=== PATIENT | female | born 1950 | race Caucasian/White ===

== ENCOUNTER 2017-05-16 10:41 | Emergency (ER) | payer MEDICAID ==
[2017-05-16 10:53] VITALS: PULSE 80; RESP 18; TEMP 98.2
[2017-05-16 11:09] LABS: % IMMATURE GRANULYOCYTES 0.2 % (0.0-1.1); ABSOLUTE IMMATURE GRANULOCYTES 0.01 10^3/uL (0.00-0.10); ADD DIFF? NO; ADD MORPH? NO; ADD SCAN? NO; ATYPICAL LYMPHOCYTE FLAG 30 (0-99); FRAGMENT RBC FLAG 0 (0-99); HEMATOCRIT 44.5 % (38.0-47.0); HEMOGLOBIN 15.1 g/dL (12.6-16.3); LEFT SHIFT FLG 0 (0-99); LIPEMIA HEMOLYSIS FLAG 90 (0-99); MEAN CELL HEMOGLOBIN 31.5 pg (27.9-34.1); MEAN CELL HEMOGLOBIN CONCENTR. 33.9 g/dL (32.4-36.7); MEAN CELL VOLUME 92.7 fL (81.5-99.8); MEAN PLATELET VOLUME 9.3 fL (8.7-11.7); PLATELET CLUMPS FLAG 0 (0-99); PLATELET COUNT 193 10^3/uL (150-400); RED CELL DISTRIBUTION WIDTH 12.2 % (11.5-15.2)
[2017-05-16] MEDS ORDERED: ASPIRIN 81 MG CHEWABLE TAB PO ONE (11:10)
--- NOTE | 2017-05-16 11:16 | CPEKG ---
Heart Rate: 78 RR Interval: 769 P-R Interval: 160 QRSD Interval: 76 QT Interval: 404 QTC Interval: 461 P [place]: 66 QRS [place]: 53 T Wave [place]: 71 EKG Severity - NORMAL ECG - EKG Impression: SINUS RHYTHM Electronically Signed By: Javier Cabral 16-May-2017 13:46:58
[2017-05-16 11:33] LABS: ANION GAP 12 mEq/L (8-16); CALCIUM 9.1 mg/dL (8.5-10.4); CARBON DIOXIDE 25 mEq/l (22-31); CHLORIDE 105 mEq/L (97-110); CREATININE 0.7 mg/dL (0.6-1.0); GLOMERULAR FILTRATION RATE > 60; GLUCOSE 96 mg/dL (70-100); POTASSIUM 4.4 mEq/L (3.5-5.2); SODIUM 142 mEq/L (134-144)
[2017-05-16 11:38] LABS: APTT 26.5 SEC (23.0-38.0)
[2017-05-16 11:42] LABS: INR 1.1 (0.83-1.16); PROTIME(PATIENT) 14.1 SEC (12.0-15.0)
[2017-05-16] MEDS ORDERED: IPRATROPIUM/ALBUTEROL 3 ML DEYVIAL IH ONE (11:51)
[2017-05-16] MEDS ORDERED: methylPREDNISolone SOD SUCC 125 MG/2 ML VIAL IVP ONE (11:55)
[2017-05-16] MEDS ORDERED: ALBUTEROL 3 ML DEYVIAL IH ONE (12:32)
--- NOTE | 2017-05-16 13:31 | EDPHY ---
H & P Stated Complaint: cough for 8 days . started pcn on Sunday took 4 pills from dental Time Seen by Provider: 05/16/17 10:57 HPI/ROS: This patient complains of a cough productive of clear sputum of 8 days duration associated with increased wheezing shortness of breath. She has associated nasal congestion. She had penicillin left over from a dental infection that she never completed the course 7 took the antibiotic over the past 3 days thinking that she might have pneumonia. The patient has a history of chronic bronchitis and continues to smoke a few cigarettes a day. She reports associated feeling of chest congestion that she describes as a slight heavy feeling in her chest. She also reports associated fatigue. She reports mild to moderate dyspnea over the past week in association with the symptoms. She drove herself here by private vehicle for further evaluation of her symptoms. ROS: Subjective fevers. No high fevers. HEENT: Mild nasal congestion. No sore throat. No other HEENT complaints. Pulmonary: No bloody sputum. No pleuritic pain. No respiratory distress. Cardiovascular: She describes this heavy sensation in her chest this feeling bronchial and similar to previous respiratory infections. She denies any orthopnea. No paroxysmal nocturnal dyspnea. No lower extremity swelling. No heart palpitations. No anginal equivalents (left shoulder pain/neck pain) GI: No abdominal pain, nausea vomiting or diarrhea. : No complaints Integumentary: No skin rash Endocrine: No complaints Complete review of symptoms otherwise negative. Source: Patient Exam Limitations: No limitations - Personal History Current Tetanus/Diphtheria Vaccine: No Current Tetanus Diphtheria and Acellular Pertussis (TDAP): No - Medical/Surgical History PMH: Chronic bronchitis Other PMH: HEP C ?? Hysterectomy - Family History Significant Family History: No pertinent family hx - Social History Smoking Status: Light smoker Alcohol Use: None Drug Use: None - Physical Exam Exam: Vital signs notable for hypoxia on room air to 86%. Other vitals are normal General Appearance: Alert, no distress. Eyes: Pupils equal and round no pallor or injection. ENT, Mouth: Mucous membranes moist. Respiratory: Bilateral wheezing with rhonchi at the left base. No rales are appreciated. Cardiovascular: Regular rate and rhythm. No murmur gallop rub. No JVD. No peripheral edema. Gastrointestinal: Abdomen is soft and nontender, no masses, bowel sounds normal. Neurological: GCS of 15 Skin: Warm and dry, no rashes. Musculoskeletal: Neck is supple nontender. Extremities are symmetrical, full range of motion. Psychiatric: Mood and affect normal DIFFERENTIAL DIAGNOSIS: After history and physical exam differential diagnosis was considered for COPD exacerbation, viral URI, pneumonia, myocardial ischemic disease, pulmonary embolism, influenza Constitutional: Initial Vital Signs Temperature (C) 36.8 C 05/16/17 10:49 Heart Rate 80 05/16/17 10:49 Respiratory Rate 18 05/16/17 10:49 Blood Pressure 115/68 05/16/17 10:49 O2 Sat (%) 89 L 05/16/17 10:49 O2 Delivery Mode Room Air O2 (L/minute) 2 Allergies/Adverse Reactions: No Known Allergies Allergy (Verified 05/16/17 10:53) Home Medications: Medication Instructions Recorded Albuterol Hfa Anes Only [Proair 2 puffs IH Q4 PRN #1 mdi 05/16/17 Hfa Icu (*)] Fluticasone Hfa 220 Mcg [Flovent 2 puffs IH DAILY #1 mdi 05/16/17 220 MCG Hfa MDI (*)] predniSONE 40 mg PO DAILY #10 tab 05/16/17 Medical Decision Making - Diagnostics EKG Interpretation: 12 lead EKG performed shortly after arrival indication dyspnea rule out MA Performed at 11:14 a.m. Sinus rhythm in 78 Intervals: Normal throughout [place]: Normal throughout ST segments: Normal throughout Overall assessment: Normal EKG Imaging Results: Imaging Impressions Chest X-Ray 05/16/17 10:56 Impression: Suspect airways disease. No pneumonia. Two view chest x-ray: No focal infiltrates. Imaging: I viewed and interpreted images myself ED Course/Re-evaluation: IV mi a Solu-Medrol 125 IV DuoNeb Albuterol neb. Patient had decreased frequency of coughing and increased aeration with decreased wheeze. However her hypoxia persists at 86% on room air. Labs: Normal CBC, metabolic panel, negative D-dimer, normal coags, normal troponin We arranged for home O2-1 liter/minute. Patient is satting 91% on 1 L per minute nasal cannula. Discussion: Patient's presentation is consistent with COPD exacerbation from viral URI. I counseled regarding this encouraged her to stop smoking. No evidence today of myocardial ischemic disease, pulmonary embolism or pneumonia. No other complicating factors. I explained the patient that she needs to follow up with her primary care physician within the next 3 to 5 days and if they cannot soon that time frame she will follow up with the on-call outpatient physician-Dr. Flores. She understands the need to return emergency department should she have any significant worsening of her symptoms despite the treatment plan. - Data Points Laboratory Results: Laboratory Results 05/16/17 11:05 05/16/17 11:05 05/16/17 05/16/17 05/16/17 11:59 11:05 11:05 WBC RBC Hgb Hct MCV MCH MCHC RDW Plt Count MPV Neut % (Auto) Lymph % (Auto) [place] % (Auto) Eos % (Auto) Baso % (Auto) Nucleat RBC Rel Count Absolute Neuts (auto) Absolute Lymphs (auto) Absolute Monos (auto) Absolute Eos (auto) Absolute Basos (auto) Absolute Nucleated RBC Immature Gran % Immature Gran # PT 14.1 SEC SEC (12.0-15.0) INR 1.10 (0.83-1.16) APTT 26.5 SEC SEC (23.0-38.0) D-Dimer 0.44 ug/mLFEU ug/mLFEU (0.00-0.50) Sodium Potassium Chloride Carbon Dioxide Anion Gap BUN Creatinine Estimated GFR Glucose Calcium Troponin I < 0.012 ng/mL ng/mL (0.000-0.034) Influenza A,B Rapid NEGATIVE FOR FLU (NEGATIVE) 05/16/17 05/16/17 11:05 11:05 WBC 5.94 10^3/uL 10^3/uL (3.80-9.50) RBC 4.80 10^6/uL 10^6/uL (4.18-5.33) Hgb 15.1 g/dL g/dL (12.6-16.3) Hct 44.5 % % (38.0-47.0) MCV 92.7 fL fL (81.5-99.8) MCH 31.5 pg pg (27.9-34.1) MCHC 33.9 g/dL g/dL (32.4-36.7) RDW 12.2 % % (11.5-15.2) Plt Count 193 10^3/uL 10^3/uL (150-400) MPV 9.3 fL fL (8.7-11.7) Neut % (Auto) 56.0 % % (39.3-74.2) Lymph % (Auto) 32.5 % % (15.0-45.0) [place] % (Auto) 6.9 % % (4.5-13.0) Eos % (Auto) 3.7 % % (0.6-7.6) Baso % (Auto) 0.7 % % (0.3-1.7) Nucleat RBC Rel Count 0.0 % % (0.0-0.2) Absolute Neuts (auto) 3.33 10^3/uL 10^3/uL (1.70-6.50) Absolute Lymphs (auto) 1.93 10^3/uL 10^3/uL (1.00-3.00) Absolute Monos (auto) 0.41 10^3/uL 10^3/uL (0.30-0.80) Absolute Eos (auto) 0.22 10^3/uL 10^3/uL (0.03-0.40) Absolute Basos (auto) 0.04 10^3/uL 10^3/uL (0.02-0.10) Absolute Nucleated RBC 0.00 10^3/uL 10^3/uL (0-0.01) Immature Gran % 0.2 % % (0.0-1.1) Immature Gran # 0.01 10^3/uL 10^3/uL (0.00-0.10) PT INR APTT D-Dimer Sodium 142 mEq/L mEq/L (134-144) Potassium 4.4 mEq/L mEq/L (3.5-5.2) Chloride 105 mEq/L mEq/L (97-110) Carbon Dioxide 25 mEq/l mEq/l (22-31) Anion Gap 12 mEq/L mEq/L (8-16) BUN 22 mg/dL mg/dL (7-23) Creatinine 0.7 mg/dL mg/dL (0.6-1.0) Estimated GFR > 60 Glucose 96 mg/dL mg/dL (70-100) Calcium 9.1 mg/dL mg/dL (8.5-10.4) Troponin I Influenza A,B Rapid Medications Given: Discontinued Medications Albuterol (Proventil Neb) 3 ml IH EDNOW ONE Stop: 05/16/17 12:33 Last Admin: 05/16/17 12:35 Dose: 3 ml Albuterol/Ipratropium (Duoneb) 3 ml IH EDNOW ONE Stop: 05/16/17 11:52 Last Admin: 05/16/17 12:07 Dose: 3 ml Aspirin (Aspirin) 324 mg PO EDNOW ONE Stop: 05/16/17 11:11 Last Admin: 05/16/17 11:21 Dose: 324 mg Methylprednisolone Sodium Succinate (Solu-Medrol) 125 mg IVP EDNOW ONE Stop: 05/16/17 11:56 Last Admin: 05/16/17 12:03 Dose: 125 mg Departure - Departure Disposition: Home, Routine, Self-Care Clinical Impression: COPD exacerbation, Viral URI, Hypoxia Condition: Good Instructions: How to Stop Smoking (ED), COPD (Chronic Obstructive Pulmonary Disease) (ED), Hypoxia (ED) Additional Instructions: Diagnosis: 1. COPD exacerbation 2. Viral upper respiratory infection 3. Hypoxia Plan: Quit smoking Home oxygen 1 liter/minute continuous Albuterol inhaler for cough, wheeze or shortness of breath Daily Flovent steroid inhaler in addition Prednisone for the next week as prescribed-take the 1st dose tomorrow morning after breakfast. We gave the IV steroids for today. Call your new primary care physician to try to facilitate close follow-up appointment sometime within the next 3-7 days. If he cannot see your primary care physician within that timeframe, then call Dr. Flores to arrange follow- up appointment within that time frame. Return for any significant worsening despite the treatment plan. Referrals: YANN,HENRIETTA [Other] - As per Instructions Jonathan [place] [place] - As per Instructions Prescriptions: Albuterol Hfa Anes Only [Proair Hfa Icu (*)] 2 puffs IH Q4 PRN #1 mdi PRN Reason: Wheezing Fluticasone Hfa 220 Mcg [Flovent 220 MCG Hfa MDI (*)] 2 puffs IH DAILY #1 mdi predniSONE 40 mg PO DAILY #10 tab
[2017-05-16 14:12] VITALS: BP 109/68; O2SAT 94
== END 2017-05-16 14:00 | disposition home or self-care (01) ==
LOC: CED 10:41
DX: J44.1 Chronic obstructive pulmonary disease with (acute) exacerbation (principal); J06.9 Acute upper respiratory infection, unspecified; R09.02 Hypoxemia; F17.200 Nicotine dependence, unspecified, uncomplicated
CPT/HCPCS: 71020-PO; 80048-PO; 84484-PO; 85025-PO; 85378-PO; 85610-PO; 85730-PO; 87400-PO; 96374; J2930

== ENCOUNTER → 2017-10-01 | Outpatient (CLI) | payer MEDICAID | LOC: CIMAGING 11:20 | PROVIDERS: ATTEND Internal Medicine | DX: Z12.2 Encounter for screening for malignant neoplasm of respiratory organs (principal); R91.8 Other nonspecific abnormal finding of lung field; I25.10 Atherosclerotic heart disease of native coronary artery without angina pectoris; Z87.891 Personal history of nicotine dependence | CPT/HCPCS: 71250-PO ==

== ENCOUNTER → 2018-01-18 | Outpatient (CLI) | payer OTHER, MEDICAID | LOC: FIMAGING 10:34 | PROVIDERS: ATTEND Internal Medicine | DX: Z12.31 Encounter for screening mammogram for malignant neoplasm of breast (principal); Z13.820 Encounter for screening for osteoporosis; M85.89 Other specified disorders of bone density and structure, multiple sites ==

== ENCOUNTER 2018-03-12 10:58 | Observation (INO) | payer OTHER, MEDICAID ==
--- NOTE | 2018-03-12 12:06 | EDPHY ---
H & P Stated Complaint: near syncopal episode today at 0940, states feels like TIA Time Seen by Provider: 03/12/18 11:10 HPI/ROS: Chief Complaint: Near syncope, facial numbness HPI: 67-year-old woman states that she had an episode this morning at 9:30 a.m. where her vision got blurry and she felt like she was going to pass out. This lasted for a few seconds. She has had down. Very shortly after that she had the sensation of numbness in the right side of her face. This includes her right forehead her upper right cheek around and behind her right ear and the right posterior side of her neck. This is persisting. No headache. No chest pain or shortness of breath. No palpitations. No nausea or vomiting. She had some similar issues several years ago where her vision"crossed"while she was watching TV several times for couple days in a row. She was seen by In told at that time she had had a small heart attack. She has never followed up with cash posting representative for any confirmatory testing. She also has seen here several months ago with headache and COPD exacerbation but refused CT scanning at that time. Denies any falls or loss of tone. No weakness. She has also been told in the past she may have had a possible TIA. She has not followed up on this either. ROS: 10 systems were reviewed and were negative except those elements noted in the HPI. PMH: COPD, possible TIA Social History: Positive smoking history, no alcohol, no recreational drug use Family History: non-contributory Physical Exam: Gen: Awake, Alert, No Distress HEENT: Nose: no rhinorrhea Eyes: PERRLA, EOMI Mouth: Moist mucosa Neck: Supple, no JVD Chest: nontender, lungs clear to auscultation Heart: S1, S2 normal, no murmur Abd: Soft, non-tender, no guarding Back: no CVA tenderness, no midline tenderness Ext: no edema, non-tender Skin: no rash Neuro: Patient has some subjective numbness on her right forehead, right upper cheek, posterior to her right ear as compared to the left. Remainder of her NIH - Medical/Surgical History Hx Asthma: No Hx Chronic Respiratory Disease: Yes Hx Diabetes: No Hx Cardiac Disease: No Hx Renal Disease: No Hx Cirrhosis: No Hx Alcoholism: No Hx HIV/AIDS: No Hx Splenectomy or Spleen Trauma: No Other PMH: COPD, TIA '99, [place], HEP C with treatment. Hysterectomy - Social History Smoking Status: Current every day smoker Constitutional: Initial Vital Signs Temperature (C) 37.1 C 03/12/18 11:08 Heart Rate 88 03/12/18 11:08 Respiratory Rate 18 03/12/18 11:08 Blood Pressure 172/88 H 03/12/18 11:08 O2 Sat (%) 92 03/12/18 11:08 O2 Delivery Mode Room Air Allergies/Adverse Reactions: No Known Allergies Allergy (Verified 03/12/18 11:07) Home Medications: Medication Instructions Recorded Albuterol Hfa Anes Only [Proair 2 puffs IH Q4 PRN #1 mdi 05/16/17 Hfa Icu (*)] Fluticasone Hfa 220 Mcg [Flovent 2 puffs IH DAILY #1 mdi 05/16/17 220 MCG Hfa MDI (*)] predniSONE 40 mg PO DAILY #10 tab 05/16/17 Fluticasone Hfa 220 Mcg [Flovent 1 puffs IH BID 30 Days mdi 01/04/18 220 MCG Hfa MDI (*)] Ipratropium/Albuterol [Combivent 1 inh IH QID 30 Days mdi 01/04/18 Respimat Inhal [place](*)] Medical Decision Making - Diagnostics EKG Interpretation: ECG time [11:21 a.m], sinus rhythm with a rate of 83, normal axis, normal intervals, no acute ST or T-wave changes. Impression: Normal ECG. Imaging Results: Imaging Impressions Head CT 03/12/18 11:33 Impression: 1. Mild cerebrovascular atherosclerosis. 2. Otherwise normal noncontrast CT brain. 3.Consider MRI of the brain, if there is continued clinical concern. Findings and recommendations discussed with Emergency Department physician, Kalia Deluna MD at 12:03 hour, 03/12/2018. Final report concurs with initial preliminary interpretation. Imaging: Discussed imaging studies w/ call worker Radiologist ED Course/Re-evaluation: 67-year-old woman with near syncopal symptoms which have resolved. ECG is negative. She also complaining of subjective right-sided facial numbness with an NIH score of 0. CT scan of the brain is negative per Dr. Alan. Patient will need further evaluation for TIA as she has multiple risk factors. Discussed with Agnieszka Kelly, hospitalist. Will admit to Dr. Byrne for further evaluation at [facility]. - Data Points Laboratory Results: 03/12/18 03/12/18 11:49 11:46 POC Sodium 143 mEq/L mEq/L (135-145) POC Potassium 4.1 mEq/L mEq/L (3.3-5.0) POC Chloride 106.0 mEq/L mEq/L (97-110) POC Total CO2 25 mEq/L mEq/L (22-31) POC BUN 17 mg/dL mg/dL (7-23) POC Creatinine 0.5 mg/dL L mg/dL (0.6-1.0) POC Glucose 102 mg/dL H mg/dL (70-100) POC Calcium 9.5 mg/dL mg/dL (8.5-10.4) POC Troponin I 0.00 ng/mL ng/mL (0.00-0.08) Point of Care Test Results: CBC CBC Collection Date 03/12/18 CBC Collection Time 11:39 WBC 5.0 RBC 4.56 HGB 14.6 HCT 42.0 PLT 154 Neut # 2.7 Neut 54.0 LYMPH # 1.8 LYMPH 36.6 Other WBC # 0.5 Other WBC 9.4 MCV 92.1 Chemistry 03/12/18 03/12/18 11:49 11:46 POC Sodium 143 mEq/L mEq/L (135-145) POC Potassium 4.1 mEq/L mEq/L (3.3-5.0) POC Chloride 106.0 mEq/L mEq/L (97-110) POC Total CO2 25 mEq/L mEq/L (22-31) POC BUN 17 mg/dL mg/dL (7-23) POC Creatinine 0.5 mg/dL L mg/dL (0.6-1.0) POC Glucose 102 mg/dL H mg/dL (70-100) POC Calcium 9.5 mg/dL mg/dL (8.5-10.4) POC Troponin I 0.00 ng/mL ng/mL (0.00-0.08) Departure - Departure Disposition: [facility] Inpatient Acute Condition: Fair NIH Stroke Scale Date of Exam: 03/12/18 Time of Exam: 11:20 Level of Consciousness: Alert LOC Questions: Answers Both LOC Commands: Performs Both Correctly Best Gaze: Normal Visual: No Visual Loss Facial Palsy: Normal Motor Arm-Left: No Drift Motor Arm-Right: No Drift Motor Leg-Left: No Drift Motor Leg-Right: No Drift Limb Ataxis: Absent Sensory: Normal Best Language: No Aphasia Dysarthria: Normal Extinction and Inattention (Neglect): No Abnormality NIH Scale Score: 0
[2018-03-12] MEDS ORDERED: ONDANSETRON DISINTEGRATING 4 MG TAB PO PRN (14:12)
[2018-03-12] MEDS ORDERED: ONDANSETRON 4 MG/2 ML VIAL IVP PRN (14:12)
[2018-03-12] MEDS ORDERED: ACETAMINOPHEN 325 MG TAB PO PRN (14:12)
[2018-03-12] MEDS ORDERED: NICOTINE NS PRN (15:33)
[2018-03-12] MEDS ORDERED: IOPAMIDOL (ISOVUE 370) 100 ML BTL IV ONE (16:14)
[2018-03-12] MEDS: NICOTINE POLACRILEX 2 MG GUM B PRN ×2 (16:23→21:16)
--- NOTE | 2018-03-12 16:34 | GHP ---
DATE OF ADMISSION: 03/12/2018 CHIEF COMPLAINT: Right facial/hand numbness. PRIMARY CARE PHYSICIAN: Dr. Bo PRIMARY MACHINE STONE POLISHER: Dr. Garcia HISTORY OF PRESENT ILLNESS: A 67-year-old female with tobacco dependence, COPD , possible prior TIA, presenting with an episode of blurry vision and facial numbness. At 9:30am she was pouring a cup of coffee standing at the counter and developed a band of blurriness across both her eyes, lasting 2-3 seconds. She then developed right facial numbness from her mid-cheek up to her forehead into the posterior aspect of her head. She is still having that numbness. She also endorsed right hand numbness for 10 minutes, which is now resolved. She sat down on the floor in case she did pass out. She denied any prodromal shortness of breath, dizziness, palpitations, lightheadedness. No chest pain. She had a similar episode in 1998. She was working cleaning buildings, pushing a cart in which she developed a right facial numbness and a mild droop for 30 minutes. She did not seek medical attention at that time. During my interview, patient is very tearful and states that she cannot stay in the hospital due to her urge to smoke a cigarette. She wants to leave AMA. I advised against this and she has agreed for further testing. REVIEW OF SYSTEMS: I completed a 10-point review of systems, negative, except as noted in HPI. PAST MEDICAL HISTORY: 1. COPD. 2. Tobacco dependence. 3. Possible prior TIA. PAST SURGICAL HISTORY: Hysterectomy. FAMILY HISTORY: Brother with what she says is a clot in a carotid artery, grandfather with lung cancer. SOCIAL HISTORY: She cleans buildings. Lives in the [place] with her ex-. Has smoked cigarettes for 50 years, now down to 3 a day. No alcohol or illicits. ALLERGIES: None. HOME MEDICATIONS: Prednisone 40 mg daily, Combivent inhaled spray, Flovent, albuterol. PHYSICAL EXAM: VITAL SIGNS: Temperature 36.6, blood pressure 148/68, heart rate in 70s, respirations 18, 92% on room air. GENERAL: She is well appearing , no acute distress. HEENT: PERRLA. Moist mucous membranes. CV: Regular rate and rhythm. No murmurs, gallops, or rubs. LUNGS: Diminished, but clear. No wheezes. ABDOMEN: Soft, nontender, nondistended with positive bowel sounds. : No [place]. MUSCULOSKELETAL: 5/5 upper and lower extremity strength. NEURO: 2 through 12 intact. Decreased sensation to touch over right forehead and cheek bone when compared to left. Normal vision. PSYCH: Alert and oriented x3. Tearful, anxious. LABORATORY/IMAGING: Sodium 143, potassium 4.1, chloride 106, carbon dioxide 0.5 , glucose 102, calcium 9.5. Troponin 0. Head CT: Mild cerebral vascular atherosclerosis. EKG personally reviewed by me: Normal sinus rhythm. ASSESSMENT/PLAN: 1. Transient ischemic attack: Still with some mild residual right facial numbness. I discussed with Dr. Luo who recommended no tPA, but further evaluation with a CTA head/ neck & MRI. Echocardiogram is pending. Physical therapy, occupational therapy, speech evaluation. We will monitor on telemetry , allow permissive HTN. Check a lipid panel. 2. Tobacco dependence: The patient is very tearful and upset stating that she wants to leave the premises to smoke. I advised her that this is against hospital policy. She was provided with nicotine gum, declined a patch. 3. Chronic obstructive pulmonary disease: Just saw her primary chemical lab supervisor, Dr. Garcia, yesterday. No evidence of exacerbation. Will continue inhalers and prednisone. 4. Diet: Regular. 5. Deep venous thrombosis prophylaxis: Sequential compression devices. DISPOSITION: Warrants observation admission for TIA warranting further imaging and Neurology consultation. /[id number]/MODL MTDD
[2018-03-12] MEDS ORDERED: LORazepam 2 MG/ML INJ IVP PRN (18:06)
[2018-03-12] MEDS ORDERED: LORazepam 0.5 MG TAB PO PRN (21:27)
[2018-03-12] MEDS: ALBUTEROL 60 PUFFS/8 GM MDI IH SCH (21:42)
[2018-03-13 07:31] VITALS: BP 120/78
[2018-03-13] MEDS ORDERED: ASPIRIN EC 81 MG TAB PO SCH (09:00)
--- NOTE | 2018-03-13 09:27 | HOSPPROG ---
Hospitalist Progress Note Assessment/Plan: Eden is a 67 y/o female w hx of tobacco dependence, copd, who presented to the Er with blurry vision and facial numbness. She had a similar episode in 1998. Today is my first encounter w the patient, chart reviewed, discussed her care with Dr Luo. *initial concern for a TIA/ had a complex migraine per neurology -hx of migraines 40 years ago -reviewed MRI which showed nothing acute -reviewed telemetry monitoring which showed sinus -other imaging shows nothing acute -has been under significant stress lately *HLD -sees a dental technician and wants to f/u with her provider *nicotine dependence -she has cut back to 3 cigarettes for 3 days and then says she doesn't smoke *COPD -sees Dr Garcia in the OP *Plan: Eden wants to leave as soon as possible, she is tearful and worried about the costs, doesn't want an echocardiogram at this time. Will dc her and have her f/u with her doctor. Treatment options discussed w her. Subjective: Eden is tearful and wants to go home. Objective: Vital Signs Temp Pulse Resp BP Pulse Ox 36.6 C 74 18 120/78 94 03/13/18 07:31 03/13/18 07:31 03/13/18 07:31 03/13/18 07:31 03/13/18 07:31 03/12/18 03/13/18 03/14/18 05:59 05:59 05:59 Intake Total 350 Balance 350 - Physical Exam Constitutional: no apparent distress Eyes: PERRL Ears, Nose, Mouth, Throat: hearing normal Cardiovascular: regular rate and rhythym, no murmur, rub, or gallop Respiratory: no respiratory distress, reduced air movement (mid lobes down) Skin: warm Musculoskeletal: full muscle strength Neurologic: AAOx3, CN II-XII Intact, No numbness, No pronator drift, No facial droop Psychiatric: anxious ICD10 Worksheet Patient Problems: Problems Problem Status Onset complex migraine Acute
[2018-03-13] MEDS: ALBUTEROL 60 PUFFS/8 GM MDI IH SCH (09:39)
[2018-03-13] MEDS: NICOTINE POLACRILEX 2 MG GUM B PRN (09:55)
--- NOTE | 2018-03-13 10:03 | NEUROPROG ---
Assessment: _[id number] - Neurology Consult: - CC: Dr. Angy Byrne consulted neurology for Right hand/face intermittent numbness. Results placed in EMR for her review. - HPI: Pt reported on 03/12/18 at 9:30 am she developed bilateral blurry vision, right facial numbness, and right hand numbness. Right hand numbness lasted 10 minutes and resolved but the right facial numbness lasted for hours. She had a similar episode in 1998 with no sequelae. She was admitted to [facility] for stroke evaluation. Brain MRI and head/neck CTA were unremarkable and cardiac rhythm was sinus. I initially saw the patient on 03/13/18. Neurologic exam was generally normal but patient still felt her right upper face felt slightly different than the left. I felt she likely had a complex migraine given symptoms present for hours but normal brain MRI. I recommended outpatient f/u with me to ensure symptoms resolve and our not a problem. - PMHx: COPD, possible prior TIA, hysterectomy - SHx: +tobacco FHx: lung cancer - ROS: Pt denied acute fever, total vision loss, active severe chest pain, respiratory failure, total body severe rash, total bowel/bladder incontinence, psychosis, active seizures, or active bleeding - O: VS reviewed General: Alert Eyes: Fundoscopic exam not able to visualize optic disks CV: Heart RRR, no murmur, no carotid bruit Lungs: Clear to auscultation bilaterally, no rhonchi or rales Neuro: - Mental: . Oriented x person/place/date . concentration appears normal . speech fluency/comprehension normal . memory appears normal . fund of knowledge appear intact - Cranial Nerves: . II: PERRL, VFFTC . III/IV/: EOMI, no nystagmus, normal smooth pursuits, no Ptosis . V: facial sensation intact to LT, pt does feel right upper face feels slightly different than left side . VII: face symmetric to eye closure and smile . VIII: hearing intact to conversation . IX/X: uvula raises symmetrically . XI: SCM 5/5 B/L strength . XII: tongue protrudes midline w/nl strength - Motor: . Tone: normal tone in all 4 extremity . Strength: no pronator drift, strength 5/5 throughout (B/L delt, bic, tri, hand dispatcher ship pilot, hf/he, df/pf) - Reflexes: B/L bic/BR/patella 2/4 - Sensory: all 4 extremity intact to light touch - Coord: [id number] wnl, NASRIN wnl, bdhd-[id number] wnl - Gait: deferred - NIH SS 0 - Labs: 03/13/18- LDL 139H - Rads: 03/12/18- Brain MRI wo: mild to mod CMVD, no acute changes (I personally visualized the images on 03/13/18) - 03/12/18- CTA head/neck: Mild predominantly calcified plaque at the carotid bulb bilaterally as well as the carotid siphon bilaterally without significant encroachment upon the lumen. Normal CT angiogram of the [place] - Assessment: 1. Transient right facial/hand numbness and bilateral blurred vision on 03/12/18 : Normal neurologic exam 03/13/18 (other than slight sense of right face feeling different from left face) and brain MRI and head/neck CTA normal on 03/12. Pt had similar symptoms in 1998 w/o sequelae. Given normal brain MRI despite hours of symptoms makes me feel this is most likely a complex migraine and not a TIA/stroke. - Plan: - No additional evaluation needed from neurology perspective - Neurology will sign off - F/U in neurology clinic 1-6 weeks after hospital discharge Objective: Vital Signs Temp Pulse Resp BP Pulse Ox 36.6 C 74 18 120/78 94 03/13/18 07:31 03/13/18 07:31 03/13/18 07:31 03/13/18 07:31 03/13/18 07:31 03/12/18 03/13/18 03/14/18 05:59 05:59 05:59 Intake Total 350 Balance 350 Allergies/Adverse Reactions: No Known Allergies Allergy (Verified 03/12/18 11:07)
--- NOTE | 2018-03-13 10:48 | GDS ---
DISCHARGE DIAGNOSES: 1. Transient right facial, hand numbness, and bilateral blurred vision, most likely consistent with a complex migraine. 2. Hyperlipidemia. 3. Nicotine dependence. 4. Chronic obstructive pulmonary disease. HISTORY: Briefly, the patient is a 67-year-old female with a history of tobacco dependence and COPD, who presented to the emergency room with blurry vision and facial numbness. She had a similar episo de in 1998. She had multiple imaging done, including an MRI, CTA of the head and neck, which showed nothing acute. She was seen and evaluated by Dr. Luo, who suspected this was most likely related to a complex migraine. She will be discharged home today and further followup with Neurology if these symptoms should recur. HOSPITAL COURSE: 1. Transient facial numbness with blurred vision, most likely a complex migraine. She will be disch arged home. She has been under significant stress and suspect this may be the etiology of this. 2. Hyperlipidemia. She sees a tobacco shaker. She wants to follow up with her provider right now, does not want treatment. 3. Nicotine dependence. She said she has cut back to 3 cigarettes for 3 days a week, and on the oth er days said she does not smoke. 4. COPD. Further followup with Dr. eDshawn Garcia. DISCHARGE CONDITION: Stable. Blood pressure is 120/78, heart rate of 74, respiratory rate of 18, O2 sats on 2 L 94%, temperature 36.6 Celsius. DISCHARGE MEDICATIONS: Please see the EMR. DISCHARGE INSTRUCTIONS: 1. To return to the ER if she should have any further stroke-like symptoms. 2. To follow up with Dr. Luo's office in 1-6 weeks. 3. Encouraged her to continue stopping smoking. 4. Recommending treatment with a statin for her elevated LDL. /[id number]/MODL
--- NOTE | 2018-03-13 11:39 | ASMTLACE ---
LACE Length of stay for Answers: 1 day current admission Comorbidities - select Answers: Cerebrovascular disease all that apply (CVA, TIA, aneurysms, vasc ular dementia) Chronic pulmonary disease Opioid dependence / Chronic pain Previous myocardial infarction # of Emergency department Answers: 1-2 visits in the last 6 months Score: 10 Date Signed: 03/13/2018 11:39 AM Electronically Signed By:Roselia Ramey RN
--- NOTE | 2018-03-13 11:43 | ASMTCMCOM ---
CM Note CM Note Notes: Pt came to ER for blurred vision and facial numbness, vision has resolved. Pt is otherwise independent and works cleaning buildings. CM spoke with hospitalist, pt has no needs and will f/u with neurology outpt. She will dc home w/support of her exhusband. CM available for any changes. DC Plan: Independent Date Signed: 03/13/2018 11:42 AM Electronically Signed By:Roselia Ramey RN
--- NOTE | 2018-03-13 21:31 | CPEKG ---
Test Reason : near syncopal episode Blood Pressure : / mmHG Vent. Rate : 083 BPM Atrial Rate : 082 BPM P-R Int : 161 ms QRS Dur : 078 ms QT Int : 371 ms P-R-T Axes : 072 041 054 degrees QTc Int : 436 ms Sinus rhythm Confirmed by Kalia Deluna ([id number]) on 03/13/2018 9:30:32 PM Referred By: Confirmed By:Kalia Deluna
== END 2018-03-13 12:10 | disposition home or self-care (01) ==
LOC: CED 10:58 → CEDHOLD 12:12 → F3N 13:54
PROVIDERS: ADMIT Internal Medicine; ATTEND Internal Medicine
DX: R20.2 Paresthesia of skin (principal); H53.8 Other visual disturbances; E78.5 Hyperlipidemia, unspecified; J44.9 Chronic obstructive pulmonary disease, unspecified; F17.200 Nicotine dependence, unspecified, uncomplicated
CPT/HCPCS: 70450; 70496; 70498; 70551; 92523; 93005; 96374; 97165; 99285; G0378; G8987; G8988; G8989; G9162; G9163; G9164; J2060; Q9967; 80048-PO; 84484-PO

== ENCOUNTER → 2018-04-12 | Outpatient (CLI) | payer OTHER, MEDICAID | LOC: FIMAGING 13:24 | PROVIDERS: ATTEND Internal Medicine | DX: R91.1 Solitary pulmonary nodule (principal) | CPT/HCPCS: 71250-PO ==

== ENCOUNTER 2018-08-06 19:15 | Inpatient (IN) | payer OTHER, MEDICAID ==
[2018-08-06] MEDS ORDERED: IPRATROPIUM/ALBUTEROL 3 ML DEYVIAL IH ONE (19:36)
--- NOTE | 2018-08-06 19:40 | EDPHY ---
H & P Time Seen by Provider: 08/06/18 19:34 HPI/ROS: Chief complaint. Cough, low oxygen level HPI. 67-year-old female with 2 day history of cough and fever. Fever is subjective. Achy and dyspnea on exertion. She cost to the point of vomiting. She was exposed to sick grandchildren last week. Patient has a pulse oximeter at home which has been registering as low as 71%. She is normally on oxygen at 2.5 liters/minute at night. She has no unusual leg pain or swelling. No abdominal pain or vomiting or diarrhea. No urinary symptoms. Some congestion. Main complaint is cough and shortness of breath. ROS 10 systems were reviewed and negative with the exception of the elements mentioned in the history of present illness Past Medical/Surgical History: COPD, TIA, mi, hep C, hysterectomy Social History: , non smoker, no alcohol Smoking Status: Former smoker Physical Exam: General Appearance: Alert well-developed female moderate distress vital signs significant for O2 saturation 86% on room air Eyes: Pupils equal and round no pallor or injection. ENT, tympanic membranes are normal. Pharynx without injection Respiratory: No retractions. Very distant breath sounds without audible wheezes rales or rhonchi Cardiovascular: Regular rate and rhythm. Gastrointestinal: Abdomen is soft and nontender, no masses, bowel sounds normal. Neurological: Awake and alert, sensory and motor exams grossly normal. Skin: Warm and dry, no rashes. Musculoskeletal: Neck is supple nontender. Extremities symmetrical, full range of motion. Psychiatric: Patient is oriented X 3, there is no agitation. Constitutional: Initial Vital Signs Temperature (C) 36.8 C 08/06/18 19:27 Heart Rate 99 08/06/18 19:27 Respiratory Rate 18 08/06/18 19:27 Blood Pressure 131/72 H 08/06/18 19:27 O2 Sat (%) 86 L 08/06/18 19:27 O2 Delivery Mode Room Air O2 (L/minute) 2 Allergies/Adverse Reactions: No Known Allergies Allergy (Verified 08/06/18 19:27) Home Medications: Medication Instructions Recorded Albuterol Hfa Anes Only [Proair 2 puffs IH BID 03/12/18 Hfa Icu (*)] Medical Decision Making - Diagnostics Imaging Results: Imaging Impressions Chest X-Ray 08/06/18 19:52 Impression: Left lower lobe pneumonia. Chest x-ray interpreted by me shows left lower lobe pneumonia Procedures: IV normal saline DuoNeb updraft Rocephin IV after blood cultures ED Course/Re-evaluation: Lactate, troponin, flu are normal Re-evaluation 9:15 p.m.. Patient is stable. She and I discussed imaging and lab results. We discussed treatment plan including recommendation for admission. She expresses understanding and agreement I consulted discussed case with Dr. Stephens, hospitalist, who agrees to the admission Differential Diagnosis: I considered pneumonia, COPD exacerbation, influenza. Patient has significant hypoxia and left lower lobe pneumonia - Data Points Laboratory Results: 08/06/18 08/06/18 08/06/18 20:18 20:17 20:14 POC Sodium 141 mEq/L mEq/L (135-145) POC Potassium 3.7 mEq/L mEq/L (3.3-5.0) POC Chloride 102.0 mEq/L mEq/L (97-110) POC Total CO2 27 mEq/L mEq/L (22-31) POC BUN 18 mg/dL mg/dL (7-23) POC Creatinine 0.5 mg/dL L mg/dL (0.6-1.0) POC Glucose 108 mg/dL H mg/dL (70-100) POC Lactic Acid Damion 0.9 mmol/L mmol/L (0.7-2.1) POC Calcium 9.6 mg/dL mg/dL (8.5-10.4) POC Troponin I 0.00 ng/mL ng/mL (0.00-0.08) Medications Given: Discontinued Medications Albuterol/Ipratropium (Duoneb) 3 ml EDNOW ONE Stop: 08/06/18 19:37 Last Admin: 08/06/18 19:39 Dose: 3 ml Point of Care Test Results: CBC CBC Collection Date 08/06/18 CBC Collection Time 20:00 WBC 9.29 RBC 4.49 HGB 13.5 HCT 41.0 PLT 151 Neut # 7.01 Neut 75.5 LYMPH # 1.56 LYMPH 16.8 MCV 91.3 Chemistry 08/06/18 08/06/18 20:17 20:14 POC Sodium 141 mEq/L mEq/L (135-145) POC Potassium 3.7 mEq/L mEq/L (3.3-5.0) POC Chloride 102.0 mEq/L mEq/L (97-110) POC Total CO2 27 mEq/L mEq/L (22-31) POC BUN 18 mg/dL mg/dL (7-23) POC Creatinine 0.5 mg/dL L mg/dL (0.6-1.0) POC Glucose 108 mg/dL H mg/dL (70-100) POC Calcium 9.6 mg/dL mg/dL (8.5-10.4) POC Troponin I 0.00 ng/mL ng/mL (0.00-0.08) Blood Gas/Lactic Acid-Venous 08/06/18 20:18 POC Lactic Acid Damion 0.9 mmol/L mmol/L (0.7-2.1) Influenza PCR Flu Nasal Swab Collection Date 08/06/18 Flu Nasal Swab Collection Time 20:00 Influenza A Result Not Detected Influenza B Result Not Detected Departure - Departure Disposition: [facility] Acute Clinical Impression: Pneumonia Qualifiers: Pneumonia type: due to unspecified organism Laterality: left Lung location: lower lobe of lung Qualified Code(s): J18.1 - Lobar pneumonia, unspecified organism Condition: Fair Referrals: Emilia Bo MD [Primary Care Provider] - As per Instructions
[2018-08-07] MEDS ORDERED: ONDANSETRON 4 MG/2 ML VIAL IVP PRN (03:15)
[2018-08-07] MEDS ORDERED: IPRATROPIUM/ALBUTEROL 3 ML DEYVIAL IH PRN (03:15)
[2018-08-07] MEDS ORDERED: ACETAMINOPHEN 325 MG TAB PO PRN (03:15)
[2018-08-07] MEDS ORDERED: NS 1,000 ML IV SCH (03:15)
[2018-08-07] MEDS ORDERED: ONDANSETRON DISINTEGRATING 4 MG TAB PO PRN (03:15)
[2018-08-07] MEDS: FAMOTIDINE 20 MG/NACL 50 ML IV SCH ×3 (03:48→17:15)
[2018-08-07 05:39] LABS: PLATELET COUNT 145 10^3/uL (150-400)
--- NOTE | 2018-08-07 05:42 | GHP ---
[f rep st] HISTORY AND PHYSICAL DATE OF ADMISSION: 08/06/2018 SOURCE: Patient provides history, appears reliable. EMR was reviewed and case discussed with [facility] hospitalist. CHIEF COMPLAINT: Shortness of breath, cough. HISTORY OF PRESENT ILLNESS: This is a very pleasant 67-year-old female with past medical history sig nificant for COPD with chronic oxygen dependence at bedtime, history of TIA, history of CAD, ND, who presents to the emergency department at [facility] with complaints of 2 days of progressive cough and fever. Patient reports that she has generalized muscle aches. She also is noting some post-tussive emesis . She does report positive sick contacts, her young niece and nephew had nausea, vomiting, co ugh. She was exposed last week. She also does go out into the community as well. The patient repor ts that she monitors her oxygen levels at home and states that she did have a pulse ox of 71% yesterd ay. She does normally wear 2.5 L/minutes at bedtime, but was finding she required oxygen in the dayt leona too. She denies any nausea, vomiting, diarrhea. She denies any lower extremity edema. She agustin es any dysuria or hematuria. No new rashes or sores. REVIEW OF SYSTEMS: Ten systems reviewed, negative except as noted above. ALLERGIES: No known drug allergies. MEDICATIONS: Albuterol HFA 2 puffs twice daily p.r.n.. PAST MEDICAL HISTORY: Significant for: 1. COPD with need for 2.5 L/minute oxygen at nighttime. 2. History of TIA in the latter part of 2018. 3. History of ND, CAD remotely. 4. HCV. PAST SURGICAL HISTORY: Significant for hysterectomy. FAMILY HISTORY: Grandfather lung cancer due to smoking. Denies any family history of CAD or ND. SOCIAL HISTORY: Patient is . She has children who live locally and are supportive. She arnold s not smoke, drink, or utilize any illicit drugs. She quit smoking tobacco. CODE STATUS: Full. PHYSICAL EXAM: VITAL SIGNS: Blood pressure is 131/72, heart rate is 99, respiratory rate 18, O2 sat s 86% on room air, temperature 36.8. Current vitals available: Blood pressure is 100/52, heart rate 91, respiratory rate 18, O2 saturation 93% on 2 L by nasal cannula, temperature 37.2. GENERAL: No acute distress, pleasant adult female is lying quietly in bed. She does appear ill, but nontoxic. H EAD: Normocephalic, atraumatic. EYES: Extraocular muscles are intact. Pupils equal, round, react to light bilaterally and symmetric. No scleral icterus, conjunctival injection. ENT: Mucous membra marco antonio appear slightly dry. No oropharyngeal erythema or exudates. No nasal discharge. NECK: Supple. Trachea midline. CV: Regular rate and rhythm. No murmurs, rubs, or gallops appreciated. RESPIRA TORY: Patient with significantly diminished air movement in all lung vela. She has occasional whe ezing present on the anterior lung vela. Occasional nonproductive cough, but congested sounding. Patient with crackles bibasilarly. ABDOMEN: Obese, soft, distended. Positive bowel sounds. : No suprapubic tenderness to palpation . No Blanco catheter in place. EXTREMITIES: No cyanosis, clubbing, or edema appreciated. Patient w ith 2+ pedal pulses bilaterally and symmetric. NEURO: Grossly nonfocal. No facial drooping. Moves all extremities. PSYCH: Patient slightly anxious, but thought process content and questions are al l appropriate. Patient is pleasant and cooperative. LABORATORY STUDIES: WBC 9.29, H and H is 13.5 and 41.0, platelet count 151, neutrophil percent 75.5. Sodium is 141, potassium 3.7, chloride is 102, CO2 is 27, BUN is 18, creatinine is 0.5, glucose is 10 8, calcium is 3.6. Troponin is negative. Lactic acid 0.9. Flu swab negative A or B. Chest x-ray: Image and report were reviewed myself noting left lower lobe pneumonia. ASSESSMENT AND PLAN: Faith 67-year-old female with history of chronic obstructive pulmonary disea se on chronic oxygen at bedtime, history transient ischemic attack, myocardial infarction, coronary a rtery disease, who presents to the emergency department today with complaints of several days of intr actable coughing, intermittent fever, myalgias. 1. Left lower lobe pneumonia. The patient was started on Rocephin in the emergency department, whic h we will plan to continue. Hopefully can transition patient to oral antibiotics in the morning. Marivel eckert continues to have hypoxia with oxygen dependence. We will continue to titrate O2 in the daytime. Patient's flu A and B negative. However, she does have some symptoms concerning for an acute viral i nfection. Respiratory PCR has been ordered. 2. Acute exacerbation of chronic obstructive pulmonary disease. Discussed with the patient treatmen t options for her exacerbation. She reports that IV and p.o. steroids gave her a lot of tremor and h yperactivity, and she requests that it not be given. She did receive DuoNeb in the emergency departm ent, and she reports that this did not seem to exacerbate her symptoms. These did appear to help wit h her symptoms. 3. Hypoxia, acute on chronic respiratory failure. The patient normally wears 2.5 L at bedtime only. She is now requiring supplementation continuously. Continue with treatment plans and antibiotics a s noted above. 4. History of coronary artery disease and myocardial infarction. The patient's med list is not yet updated. Will resume antiplatelets, beta blockers, RICK or Arbs in the morning as appropriate. 5. Fluids, electrolytes and nutrition: IV fluid supplementation for an additional liter. Patient d oes still appear dry. Electrolytes will be monitored and replaced p.r.n. Advance diet as tolerated. Speech Therapy has been consulted as patient did have an episode of coughing, but suspect this is m ore likely related to reflux as she had laid down and tried to sit up again. 6. Prophylaxis. SCDs. Lovenox. 7. Code status. Full. DISPOSITION: Patient admitted to inpatient status on the Med/Surg floor as she has continued hypoxia . Anticipate greater than 2 midnight stay. /[id number]/MODL
[2018-08-07] MEDS: ENOXAPARIN 40 MG/0.4 ML SYR SC SCH (08:34)
--- NOTE | 2018-08-07 10:13 | ASMTCMCOM ---
CM Note CM Note Notes: Pts case discussed w/ Agnieszka Kelly NP. Pt is a 67 y/o female admitted for shortness of breath and cough. SPL has been ordered and awaiting recommendations. Needs are TBD at this time. CM to follow. Plan: TBD Date Signed: 08/07/2018 10:12 AM Electronically Signed By:NANCI Jonas
--- NOTE | 2018-08-07 12:21 | HOSPPROG ---
Hospitalist Progress Note Assessment/Plan: Eden Owusu is a 67-year-old female with history of chronic obstructive pulmonary disease on chronic oxygen at bedtime, history transient ischemic attack, myocardial infarction, coronary artery disease, who presented to the emergency department today with complaints of several days of intractable coughing, intermittent fever, myalgias. *Left lower lobe pna -Rocephin -evaluated -PCR pending *acute exacerbation of COPD -prefers no steroids due to tremors and hyperactivity/ requested not to receive -sees Dr Garcia in the OP setting for this *nicotine dependence -cessation recommended -requested Ativan to help w this, will discuss benefits of Wellbutrin -ordered nicotine gum -she has significant anxiety *acute hypoxemic respiratory failure -usually uses O2 only at night and as needed -suspect she is using more frequently during the day *CAD and hx of SD -resume home meds *plan: consider Wellbutrin 150 mg daily if she is willing to try, says she doesn 't want to be addicted to it. She is sure Ativan will help, will do very low dosing, explained to her this can be very addicting. Subjective: Eden says she is feeling much better today. Objective: Vital Signs Temp Pulse Resp BP Pulse Ox 37.1 C 95 16 118/66 96 08/07/18 12:00 08/07/18 12:00 08/07/18 12:00 08/07/18 12:00 08/07/18 12:00 Laboratory Results 08/07/18 05:13 08/07/18 05:13 08/06/18 08/07/18 08/08/18 05:59 05:59 05:59 Intake Total 400 150 Output Total 225 300 Balance 175 -150 - Physical Exam Constitutional: no apparent distress, appears nourished, not in pain Eyes: PERRL Ears, Nose, Mouth, Throat: hearing normal Cardiovascular: regular rate and rhythym Respiratory: no respiratory distress, reduced air movement Skin: warm Musculoskeletal: full muscle strength Neurologic: AAOx3 Psychiatric: interacting appropriately ICD10 Worksheet Patient Problems: Problems Problem Status Onset Pneumonia Acute complex migraine Acute
[2018-08-07] MEDS: LORazepam 0.5 MG TAB PO PRN ×2 (13:19→23:14)
[2018-08-07] MEDS: NICOTINE POLACRILEX 2 MG GUM B PRN (13:19)
--- NOTE | 2018-08-07 18:56 | PDMN ---
Medical Necessity Medical necessity: Pt meets IP criteria per & MCG [id number]; est los >2 mn for eval/tx of pneumonia, acute COPD exacerbation & acute hypoxemic respiratory failure; admit for further monitoring, IV abx & respiratory supportive care; hx TIA, CAD; per H&P & order 08/06/18
[2018-08-07] MEDS ORDERED: AZITHROMYCIN IV 500 MG in NS 250 ML IV SCH (21:00)
[2018-08-07] MEDS: ALBUTEROL 60 PUFFS/8 GM MDI IH SCH (21:58)
[2018-08-08] MEDS: CEFDINIR 300 MG CAP PO SCH ×2 (05:21→20:47)
[2018-08-08] MEDS: FAMOTIDINE 20 MG/NACL 50 ML IV SCH (08:37)
[2018-08-08] MEDS: ALBUTEROL 60 PUFFS/8 GM MDI IH SCH ×2 (09:18→21:32)
--- NOTE | 2018-08-08 10:26 | ASMTCMCOM ---
CM Note CM Note Notes: Pts case discussed w/ Agnieszka Kelly NP. CM reviewed pts chart and spoke w/ JAMAAL Hendricks. [facility] has cleared pt to d/c without any needs. Pt will most likely d/c independent when medically stable. CM available for changes. Plan: Independent Date Signed: 08/08/2018 10:25 AM Electronically Signed By:NANCI Jonas
[2018-08-08] MEDS: ENOXAPARIN 40 MG/0.4 ML SYR SC SCH (10:46)
--- NOTE | 2018-08-08 11:37 | HOSPPROG ---
Hospitalist Progress Note Assessment/Plan: Eden Owusu is a 67-year-old female with history of chronic obstructive pulmonary disease on chronic oxygen at bedtime, history transient ischemic attack, myocardial infarction, coronary artery disease, who presented to the emergency department today with complaints of several days of intractable coughing, intermittent fever, myalgias. *Left lower lobe pna -Rocephin + azithro -IV fell out and started on oral -evaluated -PCR pending *acute exacerbation of COPD -prefers no steroids due to tremors and hyperactivity/ requested not to receive -sees Dr Garcia in the OP setting for this *nicotine dependence -she has requested that no-one else talk to her about cessation -requested Ativan to help w this, recommended Wellbutrin; she declined -ordered nicotine gum -she has significant anxiety *acute hypoxemic respiratory failure -usually uses O2 only at night and as needed -suspect she is using more frequently during the day *CAD and hx of IA -resume home meds *stressors -she lives w her ex , said it has been stressful -CM to f/u *plan: cont current treatment, ask PT and OT to see her, she says she is too weak to go home. Subjective: Eden is not c/o pain, crying about not feeling well, increase stress in her home life. Objective: Vital Signs Temp Pulse Resp BP Pulse Ox 37.0 C 94 17 109/52 L 92 08/08/18 08:00 08/08/18 09:18 08/08/18 09:18 08/08/18 08:00 08/08/18 09:18 Microbiology 08/07/18 04:00 Respiratory Panel (PCR) - Final Nasal, Sinus - Swab No Organism Detected By Pcr Laboratory Results 08/07/18 05:13 08/07/18 05:13 08/07/18 08/08/18 08/09/18 05:59 05:59 05:59 Intake Total 400 1120 Output Total 225 400 Balance 175 720 - Physical Exam Constitutional: appears nourished, not in pain Eyes: PERRL Ears, Nose, Mouth, Throat: hearing normal Cardiovascular: regular rate and rhythym Respiratory: no respiratory distress, expiratory wheeze, rhonchi (few in left base) Skin: warm Neurologic: AAOx3 Psychiatric: interacting appropriately, other (tearful) ICD10 Worksheet Patient Problems: Problems Problem Status Onset Pneumonia Acute complex migraine Acute
[2018-08-08] MEDS: LORazepam 0.5 MG TAB PO PRN (11:42)
[2018-08-08] MEDS: NICOTINE POLACRILEX 2 MG GUM B PRN (11:43)
[2018-08-09] MEDS: LORazepam 0.5 MG TAB PO PRN ×3 (02:58→19:12)
[2018-08-09] MEDS: ENOXAPARIN 40 MG/0.4 ML SYR SC SCH (09:16)
[2018-08-09] MEDS: CEFDINIR 300 MG CAP PO SCH ×2 (09:17→19:12)
[2018-08-09] MEDS: ALBUTEROL 60 PUFFS/8 GM MDI IH SCH ×2 (09:34→21:12)
[2018-08-09] MEDS: NICOTINE POLACRILEX 2 MG GUM B PRN ×2 (11:04→19:12)
--- NOTE | 2018-08-09 11:51 | HOSPPROG ---
Hospitalist Progress Note Assessment/Plan: Eden Owusu is a 67-year-old female with history of chronic obstructive pulmonary disease on chronic oxygen at bedtime, history transient ischemic attack, myocardial infarction, coronary artery disease, who presented to the emergency department today with complaints of several days of intractable coughing, intermittent fever, myalgias. *Left lower lobe pna -Cefdinir -IV fell out and started on oral -evaluated -PCR negative *acute exacerbation of COPD -prefers no steroids due to tremors and hyperactivity/ requested not to receive -sees Dr Garcia in the OP setting for this *nicotine dependence -she has requested that no-one else talk to her about cessation -requested Ativan to help w this, recommended Wellbutrin; she declined -ordered nicotine gum -she has significant anxiety *acute hypoxemic respiratory failure -usually uses O2 only at night and as needed -suspect she is using more frequently during the day *CAD and hx of [place] -resume home meds *stressors -she lives w her ex , said it has been stressful -CM to f/u *plan: hopefully, dc tomorrow Subjective: Eden is very anxious about going home, asking for ativan to help her quit smoking. Objective: Vital Signs Temp Pulse Resp BP Pulse Ox 36.6 C 79 20 106/59 L 91 L 08/09/18 11:26 08/09/18 11:26 08/09/18 11:26 08/09/18 11:26 08/09/18 11:26 Laboratory Results 08/07/18 05:13 08/07/18 05:13 08/08/18 08/09/18 08/10/18 05:59 05:59 05:59 Intake Total 1120 300 Output Total 400 400 Balance 720 -100 - Physical Exam Constitutional: no apparent distress, appears nourished, not in pain Eyes: PERRL Ears, Nose, Mouth, Throat: hearing normal Cardiovascular: regular rate and rhythym Respiratory: no respiratory distress, rhonchi (few scattered) Gastrointestinal: normoactive bowel sounds Skin: warm Neurologic: AAOx3 Psychiatric: interacting appropriately, anxious ICD10 Worksheet Patient Problems: Problems Problem Status Onset Pneumonia Acute complex migraine Acute
[2018-08-09] MEDS: BENZONATATE 100 MG CAP PO PRN (12:15)
[2018-08-10] MEDS: LORazepam 0.5 MG TAB PO PRN (03:40)
[2018-08-10] MEDS: NICOTINE POLACRILEX 2 MG GUM B PRN (03:41)
[2018-08-10] MEDS: ALBUTEROL 60 PUFFS/8 GM MDI IH SCH (08:14)
[2018-08-10] MEDS: CEFDINIR 300 MG CAP PO SCH (08:36)
[2018-08-10] MEDS: ENOXAPARIN 40 MG/0.4 ML SYR SC SCH (08:46)
[2018-08-10] MEDS: BENZONATATE 100 MG CAP PO PRN (08:48)
[2018-08-10 11:10] VITALS: BP 105/65
--- NOTE | 2018-08-10 11:19 | HOSPPROG ---
Hospitalist Progress Note Assessment/Plan: Eden Owusu is a 67-year-old female with history of chronic obstructive pulmonary disease on chronic oxygen at bedtime, history transient ischemic attack, myocardial infarction, coronary artery disease, who presented to the emergency department today with complaints of several days of intractable coughing, intermittent fever, myalgias. *Left lower lobe pna -Cefdinir -IV fell out and started on oral -evaluated -PCR negative *acute exacerbation of COPD -prefers no steroids due to tremors and hyperactivity/ requested not to receive -sees Dr Garcia in the OP setting for this *nicotine dependence -she has requested that no-one else talk to her about cessation -requested Ativan to help w this, recommended Wellbutrin; she declined -ordered nicotine gum -she has significant anxiety *acute hypoxemic respiratory failure -usually uses O2 only at night and as needed -suspect she is using more frequently during the day *CAD and hx of [place] -resume home meds *stressors -she lives w her ex , said it has been stressful -CM to f/u *plan: dc today, she is feeling well, asked for prescription of ativan to help her stop smoking. Did not give this to her, but gave her resources for follow up to help her with this. Subjective: Eden is feeling well and anxious to go home. Objective: Vital Signs Temp Pulse Resp BP Pulse Ox 36.3 C 83 16 105/65 93 08/10/18 11:07 08/10/18 11:07 08/10/18 11:07 08/10/18 11:07 08/10/18 11:07 Laboratory Results 08/07/18 05:13 08/07/18 05:13 08/09/18 08/10/18 08/11/18 05:59 05:59 06:59 Intake Total 300 1210 Output Total 400 100 Balance -100 1110 - Physical Exam Constitutional: no apparent distress, appears nourished, not in pain Eyes: PERRL Ears, Nose, Mouth, Throat: hearing normal Cardiovascular: regular rate and rhythym Respiratory: no respiratory distress, reduced air movement (bases otherwise CTA) Gastrointestinal: normoactive bowel sounds Skin: warm Musculoskeletal: full muscle strength Neurologic: AAOx3 Psychiatric: interacting appropriately ICD10 Worksheet Patient Problems: Problems Problem Status Onset Pneumonia Acute complex migraine Acute
--- NOTE | 2018-08-10 13:03 | ASMTDCNOTE ---
Case Management Discharge Discharge Order Complete? Answers: Yes Patient to Obtain Answers: via Family Medications Transportation Arranged Answers: Family/Friends Transport will Pick (Date 08/10/2018 12:00 AM & Time) Family Notified Answers: Yes Discharge Comments Notes: Spoke with pt's RN. Pt lives with ex- and will discharge independently. No CM needs noted at this time. Date Signed: 08/10/2018 01:02 PM Electronically Signed By:Betty Pearson
--- NOTE | 2018-08-10 13:03 | ASMTLACE ---
LACE Length of stay for Answers: 4-6 days current admission Acuity / Level of Answers: Yes Care: Did the patient have an inpatient admission? Comorbidities - select Answers: Cerebrovascular disease all that apply (CVA, TIA, aneurysms, vasc ular dementia) Chronic pulmonary disease Coronary Artery Disease Previous myocardial infarction Other Notes: Hep C, PNA # of Emergency department Answers: 3-4 visits in the last 6 months Score: 17 Date Signed: 08/10/2018 01:03 PM Electronically Signed By:Betty Pearson
--- NOTE | 2018-08-10 13:07 | ASDISCHSUM ---
Discharge Information Plan Status:Home with No Needs Medically Cleared to Leave:08/09/2018 Discharge Date:08/10/2018 12:06 PM CM D/C Disposition:Home, Routine, Self-Care ADT D/C Disposition:Home, Routine, Self-Care Projected Discharge Date:08/10/2018 12:06 PM Transportation at D/C:Family Discharge Delay Reason: Follow-Up Date:08/10/2018 12:06 PM Discharge Slot: Final Diagnosis:PNA, hypoxia Placement Information Patient Contact Information Contact Name:JACOB Relationship: Address: Home Phone: Work Phone: City: Alternate Phone: State/Zip Code: Email: Financial Information Financial Class:Medicare Primary Plan Desc:MEDICARE INPATIENT Primary Plan Number:[id number] Secondary Plan Desc:MED[place] [place] Secondary Plan Number:[id number] Assessment Information LACE LACE Length of stay for Answers: 4-6 days current admission Acuity / Level of Answers: Yes Care: Did the patient have an inpatient admission? Comorbidities - select Answers: Cerebrovascular disease all that apply (CVA, TIA, aneurysms, vasc ular dementia) Chronic pulmonary disease Coronary Artery Disease Previous myocardial infarction Other Notes: JAIRON Duong # of Emergency department Answers: 3-4 visits in the last 6 months Score: 17 Date Signed: 08/10/2018 01:03 PM Electronically Signed By:Betty Pearson [facility] CM Progress Note CM Note CM Note Notes: Pts case discussed w/ Agnieszka Kelly NP. Pt is a 67 y/o female admitted for shortness of breath and cough. SPL has been ordered and awaiting recommendations. Needs are TBD at this time. CM to follow. Plan: TBD Date Signed: 08/07/2018 10:12 AM Electronically Signed By:NANCI Jonas [facility] CM Progress Note CM Note CM Note Notes: Pts case discussed w/ Agnieszka Kelly NP. CM reviewed pts chart and spoke w/ JAMAAL Hendricks. [facility] has cleared pt to d/c without any needs. Pt will most likely d/c independent when medically stable. CM available for changes. Plan: Independent Date Signed: 08/08/2018 10:25 AM Electronically Signed By:NANCI Jonas Case Management Discharge Plan Note Case Management Discharge Discharge Order Complete? Answers: Yes Patient to Obtain Answers: via Family Medications Transportation Arranged Answers: Family/Friends Transport will Pick (Date 08/10/2018 12:00 AM & Time) Family Notified Answers: Yes Discharge Comments Notes: Spoke with pt's RN. Pt lives with ex- and will discharge independently. No CM needs noted at this time. Date Signed: 08/10/2018 01:02 PM Electronically Signed By:Betty Pearson Intervention Information
--- NOTE | 2018-08-10 16:14 | GDS ---
[f rep st] DISCHARGE SUMMARY DISCHARGE DIAGNOSES: 1. Left lower lobe pneumonia. 2. Acute exacerbation of chronic obstructive pulmonary disease. 3. Nicotine dependence. 4. Acute hypoxemic respiratory failure. 5. Coronary artery disease, history of myocardial infarction. 6. Increased stressors in her personal life. HISTORY OF PRESENT ILLNESS: Briefly, the patient is a 67-year-old female with history of COPD on chronic oxygen at bedtime and often during the day, history of a TIA, myocardial infarction, coronary artery disease, who presented the ER with complaints of intractable coughing, fever, and myalgias. She had a chest x -ray that was performed that showed a left lower lobe pneumonia. She was treated with IV antibiotics. Her IV fell out. She was then treated with oral antibiotic. She has improved throughout her stay. She will be discharged home. Recommendation is to get a followup chest x-ray in 6 weeks. HOSPITAL COURSE: 1. Left lower lobe pneumonia, markedly improved. Her PCR is negative. Lung sounds are clear. 2. Acute exacerbation of COPD. She does not like steroids. They make her feel very anxious and cause tremors. She did not get this. She will follow up with Dr. Garcia in the outpatient setting in regard to her COPD. She was treated with nebulizer treatments. 3. Nicotine dependence. She was given nicotine gum. She requested Ativan to help with withdrawals. She was given resources to help with her nicotine dependence. She is hopeful to quit smoking. 4. Acute hypoxemic respiratory failure, stable. 5. Coronary artery disease and history of myocardial infarction. Resume her home medications. 6. Stressors. She feels she is handling these better. She lives with her ex- . They have worked through multiple things. DISCHARGE CONDITION: Stable. Blood pressure is 105/65, heart rate of 83, respiratory rate is 16, O2 saturation on 2 L are 93%. On room air, they are 90% . Temperature is 36.3 Celsius. MEDICATIONS AT DISCHARGE: Please see the EMR. DISCHARGE INSTRUCTIONS: 1. To get a repeat chest x-ray in 6 weeks. 2. To take the antibiotics as scheduled. 3. Encouraged her to start walking outside and to use nicotine gum and look at other support mechanisms to help her quit smoking. /[id number]/MODL MTDD
== END 2018-08-10 12:06 | disposition home or self-care (01) | DRG 193 ==
LOC: CED 19:15 → CEDHOLD 22:02 → F3E 08-07 01:12
PROVIDERS: ADMIT Family Medicine; ATTEND Internal Medicine
DX: J18.1 Lobar pneumonia, unspecified organism (principal); J96.21 Acute and chronic respiratory failure with hypoxia; J44.1 Chronic obstructive pulmonary disease with (acute) exacerbation; J44.0 Chronic obstructive pulmonary disease with (acute) lower respiratory infection; F17.200 Nicotine dependence, unspecified, uncomplicated; I25.10 Atherosclerotic heart disease of native coronary artery without angina pectoris; I25.2 Old myocardial infarction; B19.20 Unspecified viral hepatitis C without hepatic coma; Z80.1 Family history of malignant neoplasm of trachea, bronchus and lung
CPT/HCPCS: 71046-PO; 80048-ER; 83605-ER; 84484-ER; 92610-GN; 96365; 97116-GP; 97161-GP; 97165-GO; J0456; J0696; J1650

== ENCOUNTER → 2018-09-24 | Outpatient (CLI) | payer OTHER, MEDICAID | LOC: CIMAGING 13:15 | PROVIDERS: ATTEND Internal Medicine Pulmonary Disease | DX: R91.1 Solitary pulmonary nodule (principal); J43.9 Emphysema, unspecified; J44.9 Chronic obstructive pulmonary disease, unspecified; R06.09 Other forms of dyspnea | CPT/HCPCS: 71250-PO ==